=== PATIENT | male | born 1960 | race Caucasian/White ===

== ENCOUNTER 2018-10-30 00:20 | Emergency (ER) | payer SELFPAY ==
[~2018-10-30] VITALS: Ht 180.3 cm; Wt 89.1 kg
[2018-10-30] MEDS ORDERED: MECLIZINE CHEWABLE 25 MG TAB ONE (00:56)
[2018-10-30] MEDS ORDERED: MECLIZINE CHEWABLE 25 MG TAB PO ONE (01:00)
--- NOTE | 2018-10-30 01:12 | NUR ---
PT HERE FOR DIZZINESS AND CONGESTION. VSS. PT MEDICATED FOR DIZZINESS. XRAY AT BEDSIDE. CALL LIGHT IN REACH
[2018-10-30 01:26] LABS: BASOPHILS # (AUTO) 0.05 x10^3/uL (0-0.1); BASOPHILS % (AUTO) 1 % (0-1); EOSINOPHILS # (AUTO) 0.45 x10^3/uL (0-0.4); EOSINOPHILS % (AUTO) 5 % (1-7); LYMPHOCYTES # (AUTO) 2.82 x10^3/uL (1-3.4); LYMPHOCYTES % (AUTO) 30 % (22-44); MD NO; MEAN CORPUSCULAR HEMOGLOBIN 31.1 pg (27.5-34.5); MEAN CORPUSCULAR HGB CONC 31.7 g/dL (33.2-36.2); MEAN CORPUSCULAR VOLUME 98.2 fL (81-97); MEAN PLATELET VOLUME 7.6 fL (7.4-10.4); MONOCYTES # (AUTO) 0.82 x10^3/uL (0.2-0.8); MONOCYTES % (AUTO) 9 % (2-9); NEUTROPHILS # (AUTO) 5.12 x10^3/uL (1.8-6.8); NEUTROPHILS % (AUTO) 55 % (42-75); PLATELET COUNT 298 x10^3/uL (130-400); RED BLOOD COUNT 4.38 x10^6/uL (4.38-5.82); RED CELL DISTRIBUTION WIDTH 13.5 % (9.4-14.8)
[2018-10-30 01:34] LABS: ALBUMIN 3.2 g/dL (3.4-5.0); ANION GAP 8 mmol/L (5-15); CALCIUM 8.2 mg/dL (8.5-10.1); CHLORIDE 108 mmol/L (98-107); CREATININE 1.13 mg/dL (0.7-1.3)
[2018-10-30 01:38] LABS: ALKALINE PHOSPHATASE 117 U/L (45-117); TOTAL PROTEIN 6.4 g/dL (6.4-8.2); TROPONIN I < 0.015 ng/mL (0.000-0.045)
[2018-10-30 01:40] LABS: BILIRUBIN,TOTAL < 0.1 mg/dL (0.2-1.0)
[2018-10-30 01:41] LABS: ALANINE AMINOTRANSFERASE 23 U/L (12-78)
[2018-10-30 02:30] LABS: RAPID INFLUENZA A Negative (Negative); RAPID INFLUENZA B Negative (Negative)
--- NOTE | 2018-10-30 02:30 | NUR ---
Patient given discharge instructions and they have confirmed that they understand the instructions. Patient ambulatory with steady gait.
[2018-10-30 02:31] VITALS: BP 146/82
== END 2018-10-30 02:31 ==
LOC: ED 02:22
DX: R42 Dizziness and giddiness (principal); B34.9 Viral infection, unspecified; I10 Essential (primary) hypertension
CPT/HCPCS: 36415; 71045; 80053; 83880; 84484; 85025; 87400; 93005; 99284

== ENCOUNTER 2018-11-03 03:59 | Emergency (ER) | payer SELFPAY ==
[~2018-11-03] VITALS: Ht 180.3 cm; Wt 87.2 kg
[2018-11-03] MEDS ORDERED: HYDROcodone/APAP 5/325 TABLET ONE (04:51)
[2018-11-03] MEDS ORDERED: HYDROcodone/APAP 5/325 TABLET PO ONE (05:00)
--- NOTE | 2018-11-03 07:52 | NUR ---
I ATTEMPTED TO EXPLAIN THE DISCHARGE TO THE PT. HE SAW THAT WE WERE SENDING HIM HOME WITH MEDICATION THAT WERE NON-NARCOTIC. PT GOT AGITATED AND SAID, "WHY CAN'T YOU GIVE ME SOME DAMN NORCO?" I ATTEMPTED TO EXPLAIN WHY AND PT GRABBED HIS PAPERS, AND SAID "JUST LET ME SIGN THE DAMN PAPERS AND GET OUT OF HERE". PT SIGNED DC PAPER AND THEN LEFT THE ROOM. PT DID NOT TAKE HIS DC INSTRUCTIONS OR HIS PRESCRIPTIONS WITH HIM. PT IN NO ACUTE SIGNS OF DISTRESS, STEADY ON FEET, ALERT/ORIENTED AND ANSWERED QUESTIONS APPROPRIATELY. NO IV AT TIME OF DISCHARGE.
[2018-11-03 07:56] VITALS: BP 149/111
== END 2018-11-03 08:00 | disposition home or self-care (01) ==
LOC: ED 07:54
DX: S06.0X0A Concussion without loss of consciousness, initial encounter (principal); S13.4XXA Sprain of ligaments of cervical spine, initial encounter; S00.83XA Contusion of other part of head, initial encounter; S20.211A Contusion of right front wall of thorax, initial encounter; S40.011A Contusion of right shoulder, initial encounter; I10 Essential (primary) hypertension; F17.210 Nicotine dependence, cigarettes, uncomplicated; Y04.8XXA Assault by other bodily force, initial encounter; Y93.89 Activity, other specified; Y92.410 Unspecified street and highway as the place of occurrence of the external cause; Y99.8 Other external cause status
CPT/HCPCS: 70450; 72125; 99284

== ENCOUNTER 2018-11-03 23:50 | Emergency (ER) | payer SELFPAY ==
[~2018-11-03] VITALS: Ht 180.3 cm; Wt 87.8 kg
[2018-11-03 23:55] VITALS: BP 150/72
[2018-11-04] MEDS ORDERED: IBUPROFEN 200 MG TABLET ONE (00:22)
[2018-11-04] MEDS ORDERED: ACETAMINOPHEN 325 MG TABLET ONE (00:22)
[2018-11-04] MEDS ORDERED: IBUPROFEN 200 MG TABLET PO ONE (00:30)
[2018-11-04] MEDS ORDERED: ACETAMINOPHEN 325 MG TABLET PO ONE (00:30)
--- NOTE | 2018-11-04 00:32 | NUR ---
PT REFUSED IBU AND TYLENOL, YELLING AT RN "THIS IS BULLSHIT, I WANTED A NORCO". PT INFORMED THAT ERMD WILL NOT GIVE NORCO. PT LEFT ROOM YELLING "THIS IS A WASTE OF MY TIME". PT LEFT ER.
== END 2018-11-04 00:51 | disposition left against medical advice (07) ==
LOC: ED 11-04 00:30
DX: M25.511 Pain in right shoulder (principal); I10 Essential (primary) hypertension
CPT/HCPCS: 99281